=== PATIENT | male | born 1990 | race African-American/Black ===

== ENCOUNTER 2017-10-13 08:54 | Emergency (ER) | payer OTHER ==
[~2017-10-13] VITALS: Ht 172.7 cm; Wt 109.4 kg
[~2017-10-13 08:54] MED LIST: AMBIEN10 MG PO; AMBIEN5 MG PO; CLONIDINE HCL0.1 MG PO; NOHOMEMEDS; XANAX0.25 MG PO
[2017-10-13 09:30] LABS: BASOPHIL (%) 0.6 % (0-1); EOSINOPHIL (%) 3.9 % (0-5); EOSINOPHIL COUNT 0.2 K/uL (0-0.3); HEMATOCRIT 43.8 % (38.0-50.0); HEMOGLOBIN 14.5 G/DL (12.5-16.6); IMMATURE GRANULOCYTE (%) 0.2 % (0.0-0.7); LYMPHOCYTE (%) 35.4 % (15-42); LYMPHOCYTE COUNT 1.9 K/uL (1.0-2.8); MCH 30.3 PG (29.0-34.0); MCHC 33.1 G/DL (30.0-36.0); MCV 91.6 FL (86-99); MONOCYTE (%) 9.3 % (3-12); MONOCYTE COUNT 0.5 K/uL (0-0.8); NEUTROPHIL (%) 50.6 % (45-76); NEUTROPHIL COUNT 2.7 K/uL (1.8-6.4); PLATELET COUNT 264 K/uL (156-360); RBC DIS.WIDTH-CV 13.2 % (11.8-14.6); RBC DIS.WIDTH-SD 45.1 % (39-53); RED BLOOD COUNT 4.78 M/uL (4.00-5.50); WHITE BLOOD COUNT 5.4 K/uL (4.1-10.2)
[2017-10-13 09:46] LABS: CHLORIDE 101 mEq/L (99-109); POTASSIUM 4.7 mEq/L (3.7-5.4); SODIUM 138 mEq/L (136-147)
[2017-10-13 09:48] LABS: GLUCOSE 104 mg/dL (70-99)
[2017-10-13 09:52] LABS: CREATININE 1.2 mg/dL (0.6-1.3); GFR ESTIMATE (CALCULATED) > 59 mL/min/ (58.99-99999)
[2017-10-13 09:53] LABS: UREA NITROGEN (BUN) 13 mg/dL (9-23)
[2017-10-13 10:37] VITALS: BP 148/98
== END 2017-10-13 10:38 | disposition home or self-care (01) ==
LOC: EME 08:54
PROVIDERS: Physician Assistant
DX: R10.9 Unspecified abdominal pain (principal); J02.9 Acute pharyngitis, unspecified; F41.9 Anxiety disorder, unspecified; F17.200 Nicotine dependence, unspecified, uncomplicated
CPT/HCPCS: 80048; 85025; 87651 90; 99281; 99284

== ENCOUNTER 2017-10-18 00:51 | Emergency (ER) | payer OTHER ==
[~2017-10-18] VITALS: Ht 172.7 cm; Wt 108.7 kg
[2017-10-18 00:55] VITALS: BP 160/99
== END 2017-10-18 02:11 | disposition left against medical advice (07) ==
LOC: EME 00:51
DX: T78.40XA Allergy, unspecified, initial encounter (principal); Z53.21 Procedure and treatment not carried out due to patient leaving prior to being seen by health care provider